=== PATIENT | female | born 2005 | race Two or more races ===

== ENCOUNTER 2025-05-18 11:00 | Inpatient (IN) | payer MEDICAID, OTHER ==
[~2025-05-18] VITALS: Ht 157.5 cm; Wt 51.0 kg
--- NOTE | 2025-05-18 11:08 | ED.PDOC ---
HPI (NEURO) HPI Comments One day headache, near-syncope, fever, generalized weakness, sick contacts with similar symptoms at home. HPI: Poor Historian. Past Medical History: Past Surgical History: HPI: 19 y F who presents to the ED via EMS for chief complaint of headache -EMS states pt has noted history of cerebral palsy and pt called EMS 10 minutes after having headache with noted near syncopal episode - pt states she was in restroom and states she started to have headache and states she felt she was going to pass out and called family who helped her to her bed - pt felt weak while sitting down in bed with noted headache and dizziness and EMS was called - EMS arrived on scene and noted pt was alert and oriented and checked vitals with noted temp of 104.2 F and family noting sick contacts - pt was brought to the ED, and had temp checked with noted temp of 100.5 F in the ED, with noted heart rate of 123 with otherwise stable stable vitals - pt otherwise denies current - pt denies any other symptoms in the ED Past Medical History: cerebral palsy, Past Surgical History: L hip and eye surgery Social History: Denies ETOH, smoking, and drug use. Medications: unknown Allergies: nkda REVIEW OF SYSTEMS: CONSTITUTIONAL: Denies acute: diaphoresis, chills, HEAD: Denies acute: photophobia Eyes: Denies acute: Double vision, vision loss, eye pain, eye discharge. EARS: Denies acute: tinnitus, hearing loss, ear discharge, ear pain, THROAT: Denies acute: sore throat, swelling, difficulty swallowing , pain with swallowing, change in voice. NECK: Denies acute: neck pain, neck swelling, stiff neck. HEART: Denies acute : chest pain, palpitations, LUNGS: Denies acute: SOB, wheezing, cough, hemoptysis ABDOMEN: Denies acute: abdominal pain, Nausea, Vomiting, diarrhea, melena , hematemesis, hematochezia SKIN: Denies acute: rash, redness, lesions, itchiness. EXTREMITIES: Denies acute: calf pain, numbness, tingling, weakness, denies pain in extremity. Denies acute: Low back pain. Neuro: Denies acute: focal neurological deficit, motor or sensory focal neurological deficit, tremors, seizure like activity, confusion, change in mental status, loss of bowel or bladder function, cauda equina like symptoms. : Denies acute: dysuria, hematuria, flank pain, increase in urinary frequency. PSYCH: Denies acute: hallucination, suicidal ideation, homicidal ideation. FEMALE: Denies acute: abnormal vaginal bleeding, foul odor, unusual discharge. PHYSICAL EXAM: General: ----[id number]----acute distress, awake and alert. Head: normocephalic, atraumatic. Neck: supple, trachea is midline, no swelling. Throat: Normal phonation. Dry oral mucosa Eyes:, no erythema, no purulent discharge, no proptosis, no icterus. Heart: regular tachycardia in the setting of fever, no significant murmur appreciated. Lungs: no apparent respiratory distress, Able to speak in full sentences. No wheezing, no rhonchi, no crackles. No stridors Clear to auscultation bilaterally. Abdomen: non tender to palpation, non distended, soft, no guarding, no rebound, + bowel sounds. Neuro: Awake, Alert, oriented to name, self, situation, follows commands GCS=15. Speech is normal. Skin: no petechia, no purpura, no cyanosis, non-pale, not jaundice. Lower extremities: --no - Pitting edema no acute deformity, no focal swelling, no calf TTP. Noted joint deformity with a history of cerebral palsy Makes eye contact. moves all four extremities. Face: no apparent facial droop. PERRLA, EOM-I CN 2-12 are grossly intact, No nystagmus. No nuchal rigidity, Kernig's sign, Brudzinski's sign, no meningeal signs. ED COURSE: DISCLAIMER: This medical document was created using an electronic medical record system with voice recognition software and computerized dictation system. Although this document has been carefully reviewed, there might still be some phonetic and typographical errors. Occasional wrong-word or "sound-alike" substitutions may have occurred due to the inherent limitations of voice recognition software. These areas are purely typographical due to imperfections of the software programs and do not reflect any compromise in the patient's medical care. Please read the chart carefully and recognize, using context, where these substitutions have occurred. Chief Complaint: near syncope Time Seen by MD: 11:08 Reviewed Notes: Allergies Information Source: Patient, Emergency Med Personnel Mode of Arrival: EMS Was a procedure done? Was a procedure done?: No Differential Diagnosis (SZ) Seizure: N/A General Weakness: Other (Includes but not limited to thyroid disease, encephalopathy, electrolyte abnormality, sepsis, infection, intracranial pathology, drug adverse effects, arrhythmia, kidney insufficiency, ACS, CVA, malignancy, anemia, viral etiology,) X-Ray, Labs, Meds, VS Vital Signs Date Time Temp Pulse Resp B/P (MAP) Pulse Ox O2 Delivery O2 Flow Rate FiO2 05/18/25 18:00 98.0 93 20 96/62 (73) 100 98.0 05/18/25 17:00 108 20 100/56 (71) 100 05/18/25 16:00 100.8 05/18/25 16:00 100.8 110 15 94/57 (69) 100 100.8 05/18/25 14:46 102.4 05/18/25 14:46 102.4 121 15 99/58 (72) 100 102.4 05/18/25 11:30 123 15 100 Room Air* 0 21 05/18/25 11:30 102.7 123 15 107/69 (82) 100 102.7 05/18/25 11:11 100.5 123 16 103/67 99 100.5 Lab Test 05/18/25 17:42 05/18/25 14:56 05/18/25 13:00 05/18/25 12:57 Range/Units Urine Color Light-yellow Yellow Urine Clarity Clear Clear Urine pH 7.5 5.0-9.0 Urine Specific [place] 1.013 1.001-1.035 Urine Protein Negative Negative Urine Ketones 1+ H Negative Urine Blood Negative Negative /uL Urine Nitrite Negative Negative Urine Bilirubin Negative Negative Urine Urobilinogen Normal Negative mg/dL Urine Leukocyte Esterase Negative Negative /uL Urine RBC None seen 0 - 4 /hpf Urine Microscopic WBC 1 0-5 /HPF Urine Squamous Epithelial Cells Few <5 /hpf Urine Bacteria None seen None Seen /hpf Urine Glucose Normal Normal mg/dL Lactic Acid Level 3.2 *H 0.4-2.0 mmol/L Troponin I High Sensitivity < 3 L < 3 L </=34 ng/L Influenza Type A Antigen Negative Negative Influenza Type B Antigen Negative Negative SARS-CoV-2 Antigen (Rapid) Negative NEGATIVE Test 05/18/25 11:40 Range/Units White Blood Count 8.6 4.4-10.8 10^3/uL Red Blood Count 5.34 H 4.0-5.20 10^6/uL Hemoglobin 12.3 12.2-16.2 g/dL Hematocrit 37.7 36.0-46.0 % Mean Corpuscular Volume 70.5 L 80.0-100.0 fL Mean Corpuscular Hemoglobin 23.0 L 28.0-32.0 pg Mean Corpuscular Hemoglobin Concent 32.7 32.0-36.0 g/dL Red Cell Distribution Width 17.7 H 11.8-14.3 % Platelet Count 229 140-450 10^3/uL Mean Platelet Volume 9.2 6.9-10.8 fL Neutrophils (%) (Auto) 93.2 H 37.0-80.0 % Lymphocytes (%) (Auto) 2.2 L 10.0-50.0 % Monocytes (%) (Auto) 4.3 0.0-12.0 % Eosinophils (%) (Auto) 0.1 0.0-7.0 % Basophils (%) (Auto) 0.2 0.0-2.0 % Neutrophils # (Auto) 8.0 1.6-8.6 10 ^3/uL Lymphocytes # (Auto) 0.2 L 0.4-5.4 10 ^3/uL Monocytes # (Auto) 0.4 0-1.3 10 ^3/uL Eosinophils # (Auto) 0 0-0.8 10 ^3/uL Basophils # (Auto) 0 0-0.2 10 ^3/uL Nucleated Red Blood Cells 0.0 % Prothrombin Time 10.9 9.3-11.8 sec Prothrombin Time INR 1.03 0.9-1.15 Activated Partial Thromboplast Time 23.9 L 24.5-34.5 SEC Sodium Level 141 136-145 mmol/L Potassium Level 3.4 L 3.5-5.1 mmol/L Chloride Level 112 H 98-107 mmol/L Carbon Dioxide Level 16 L 20-31 mmol/L Anion Gap 13 5-15 Blood Urea Nitrogen 5 L 9-23 mg/dL Creatinine 0.80 0.550-1.02 mg/dL Glomerular Filtration Rate Calc 107 >90 mL/min BUN/Creatinine Ratio 6.3 L 10.0-20.0 Serum Glucose 104 74-106 mg/dL Lactic Acid Level 2.2 *H 0.4-2.0 mmol/L Calcium Level 9.6 8.7-10.4 mg/dL Magnesium Level 2.2 1.6-2.6 mg/dL Total Bilirubin 0.4 0.2-1.0 mg/dL Aspartate Amino Transferase (AST) 12 L 13-40 U/L Alanine Aminotransferase (ALT) 15 7-40 U/L Alkaline Phosphatase 85 46-116 U/L Troponin I High Sensitivity < 3 L </=34 ng/L Total Protein 8.3 H 5.7-8.2 g/dL Albumin 5.1 H 3.2-4.8 g/dL Microbiology Date/Time Source Procedure Growth Status 05/18/25 17:44 Voided Urine Urine Culture - Preliminary Resulted 05/18/25 11:40 Blood Blood Culture - Preliminary NO GROWTH AFTER 48 HOURS OF INCUBATION. Resulted 05/18/25 11:25 Blood Blood Culture - Preliminary NO GROWTH AFTER 48 HOURS OF INCUBATION. Resulted [facility] [id number] [place] [address] Ph: [phone] DIAGNOSTIC IMAGING Diagnostic Imaging Report : [id number] Signed PATIENT: CHARI ACUNA ACCT: [id number] UNIT: [id number] : 2005 LOC: ER ROOM / BED: / AGE / SEX: 19 / F ADM STATUS: REG ER SERVICE [id number] ORDERING PHYSICIAN: KATTY LEONARD DO PROCEDURE(s): HWOCT - HEAD WITHOUT CONTRAST REASON: ORDER NUMBER(s): [id number], ACCESSION NUMBER(s): [id number] EXAM: CT HEAD WITHOUT CONTRAST HISTORY: MELO COMPARISON: None TECHNIQUE: Noncontrast axial CT images of the head were performed. Sagittal and coronal reformatted images were obtained. This CT exam was performed using 1 or more of the following dose reduction techniques: Automated exposure control, adjustment of the mA and/or kv according to patient size, or the use of iterative reconstruction techniques. Radiation Dose: CTDI volume is 51.03 mGy. Dose-length product is 116.48 mGy*cm FINDINGS: Patient motion limits evaluation. There is question bilateral frontal lobe cerebral edema versus artifactual appearance due to patient motion artifact. No intracranial hemorrhage, mass, midline shift, hydrocephalus, or evidence of acute large vessel infarct. The partially-visualized paranasal sinuses are clear. The bilateral mastoid air cells and middle ear spaces are clear. There is cerumen impaction in the bilateral external auditory canals. There is adenoid tonsillar hypertrophy. No cranial fracture or scalp edema. IMPRESSION: Question of bilateral frontal lobe cerebral edema versus artifactual appearance due to patient motion. Recommend repeat CT imaging of the head to eliminate this patient motion artifact. ATED BY: LILLIANA NUÑEZ MD DICTATED DATE/TIME: 05/18/251332 SIGNED BY: LILLIANA NUÑEZ MD SIGNED DATE/TIME: 05/18/251332 CC: [place] [address] Ph: [phone] DIAGNOSTIC IMAGING Diagnostic Imaging Report : [id number] Signed PATIENT: CHARI ACUNA ACCT: [id number] UNIT: [id number] : 2005 LOC: ER ROOM / BED: / AGE / SEX: 19 / F ADM STATUS: REG ER SERVICE 1108 ORDERING PHYSICIAN: KATTY LEONARD DO PROCEDURE(s): CXRP - CHEST PORTABLE REASON: fever, MELO, NEAR SYNCOPE ORDER NUMBER(s): [id number], ACCESSION NUMBER(s): [id number] CHEST RADIOGRAPH Indication: fever, MELO, NEAR SYNCOPE Technique: Single frontal view of the chest was obtained COMPARISON: None FINDINGS: Lines and Tubes: None Lungs: Clear Pleura: No effusion. No pneumothorax. Cardiomediastinal contours: Unremarkable Bones: Unremarkable IMPRESSION: No acute disease. ATED BY: TIM FOWLER MD DICTATED DATE/TIME: 05/18/25 1152 SIGNED BY: TIM FOWLER MD SIGNED DATE/TIME: 05/18/25 115 CC: [place] [address] Ph: [phone] DIAGNOSTIC IMAGING Diagnostic Imaging Report : [id number] Signed PATIENT: CHARI ACUNA ACCT: [id number] UNIT: [id number] : 2005 LOC: ER ROOM / BED: / AGE / SEX: 19 / F ADM STATUS: REG ER SERVICE 1409 ORDERING PHYSICIAN: KATTY LEONARD DO PROCEDURE(s): HWOCT - HEAD WITHOUT CONTRAST REASON: abn CT findings ORDER NUMBER(s): [id number], ACCESSION NUMBER(s): [id number] CLINICAL INFORMATION: Abnormal CT findings. CT from earlier the same day was obtained for headache. TECHNIQUE: Axial imaging was obtained through the brain without contrast. Coronal and sagittal reformatted images were obtained, reviewed, and stored. Images were reviewed in brain and bone windows. All CT scans at this medical facility are performed using dose modulation techniques as appropriate to a performed exam including the following: Automated exposure control was utilized; adjustment of the MA and/or KV according to patient size; and use of iterative reconstruction technique. CTDIvol = 33.35 mGy DLP = 587.16 mGy-cm COMPARISON: CT HEAD WITHOUT CONTRAST on DOS: 05/18/25 FINDINGS: No acute intracranial hemorrhage. Improved artifact compared to the prior CT. There remains mild artifact in the anterior inferior right frontal lobe. No definite evidence for cerebral edema. There appears to be normal hoover- white differentiation other than the area of artifact. The ventricles and sulci are within normal limits in size for age. Basal cisterns are patent. The calvarium is unremarkable. Paranasal sinuses and mastoid air cells are clear. IMPRESSION: 1. Improved artifact compared to the recent CT exam. No definite cerebral edema. 2. No evidence of acute intracranial hemorrhage. Otherwise, no evidence of acute intracranial abnormality. Correlate with clinical findings. If clinical symptoms persist or worsen, MRI could be considered. ATED BY: SIN REID DO DICTATED DATE/TIME: 05/18/251444 SIGNED BY: SIN REID DO SIGNED DATE/TIME: 05/18/251444 CC: Time of 1ST Reevaluation: 00:00 Reevaluation 1ST: Patient Education/Counseling: Other Family Education/Counseling: No Family Present Comments MDM: patient presented with the above HPI.--fever----workup was initiated. patient was found with the above mentioned diagnosis. the following medications were ordered: please refer to order lists of meds and tests obtained by myself Dr. Leonard. Patient ED course and VS have been stabilized. Patient has been reassessed in the ED and remained in a stable condition. Pertinent incidental findings were discussed with the patient and/or family. Patient/family voices understanding and is agreeable with plan. Patient has been observed in the ED adequate length of time to insure improvement/stability. Escalation of care considered: Consideration of escalation to observation or admission Patient was given Tylenol. Sepsis protocol initiated. Fluids and antibiotics given. Patient was ADMITTED to the medicine team for further evaluation and treatment o f their presentation. All the reports of any imaging studies that were ordered by myself were reviewed by myself. Departure 1 Departure Time of Disposition: 12:13 Impression: Primary Impression: Fever of unknown origin Disposition: ADMITTED INPATIENT Admit to: Tele Condition: Guarded e-Prescriptions Amoxicillin & Pot Clavulanate (AUGMENTIN TABLET) 875 Mg Tb 875 MG PO BID for 5 Days, #10 TAB 0 Refills Prov: BRANDON ALARCON MD 05/20/25 Discharged With: Self Critical Care Note Critical Care Time?: Yes (45 min-critical care time only) I personally scribed for KATTY LEONARD DO ([email or web address]) on 05/18/25 at 11:08. Electronically submitted by Angel Esteban ([email or web address]). I personally scribed for KATTY LEONARD DO ([email or web address]) on 05/18/25 at 11:58. Electronically submitted by Angel Esteban ([email or web address]). I personally scribed for KATTY LEONARD DO ([email or web address]) on 05/18/25 at 13:49. Electronically submitted by Angel TOLEDO). KATTY LEONARD DO May 18, 2025 11:08
[2025-05-18 11:30] VITALS: PULSE 123; RESP 15; O2SAT 100
--- NOTE | 2025-05-18 11:54 | DVH ---
CHEST RADIOGRAPH Indication: fever, MELO, NEAR SYNCOPE Technique: Single frontal view of the chest was obtained COMPARISON: None FINDINGS: Lines and Tubes: None Lungs: Clear Pleura: No effusion. No pneumothorax. Cardiomediastinal contours: Unremarkable Bones: Unremarkable IMPRESSION: No acute disease.
[2025-05-18] MEDS: LACTATED RINGER'S 1,500 ML IV ONE (12:00)
[2025-05-18] MEDS: CEFEPIME 1GM/ 50ML 50 ML IV ONE (12:05)
[2025-05-18 12:11] LABS: Hematocrit 37.7 % (36.0-46.0); Hemoglobin 12.3 g/dL (12.2-16.2); Mean Corpuscular Hemoglobin 23.0 pg (28.0-32.0); Mean Corpuscular Volume 70.5 fL (80.0-100.0); Nucleated Red Blood Cells % 0.0 %
[2025-05-18 12:19] LABS: Alanine Aminotransferase 15 U/L (7-40); Alkaline Phosphatase 85 U/L (46-116); Anion Gap 13 (5-15); BUN/Creatinine Ratio 6.3 (10.0-20.0); Calcium 9.6 mg/dL (8.7-10.4); Glucose 104 mg/dL (74-106); Magnesium 2.2 mg/dL (1.6-2.6); Sodium 141 mmol/L (136-145)
[2025-05-18 12:20] LABS: Bilirubin, Total 0.4 mg/dL (0.2-1.0)
[2025-05-18 12:22] LABS: Albumin 5.1 g/dL (3.2-4.8); Blood Urea Nitrogen 5 mg/dL (9-23); Carbon Dioxide 16 mmol/L (20-31); Chloride 112 mmol/L (98-107); Potassium 3.4 mmol/L (3.5-5.1); Total Protein 8.3 g/dL (5.7-8.2)
[2025-05-18 12:27] LABS: INR 1.03 (0.9-1.15); Partial Thromboplastin Time 23.9 SEC (24.5-34.5); Prothrombin Time 10.9 sec (9.3-11.8)
[2025-05-18 12:29] LABS: Lactic Acid w/Reflex 2.2 mmol/L (0.4-2.0)
[2025-05-18 13:31] LABS: COVID19 ANTIGEN SOFIA FIA NEGATIVE (NEGATIVE)
--- NOTE | 2025-05-18 13:35 | DVH ---
EXAM: CT HEAD WITHOUT CONTRAST HISTORY: MELO COMPARISON: None TECHNIQUE: Noncontrast axial CT images of the head were performed. Sagittal and coronal reformatted i mages were obtained. This CT exam was performed using 1 or more of the following dose reduction techn iques: Automated exposure control, adjustment of the mA and/or kv according to patient size, or the u se of iterative reconstruction techniques. Radiation Dose: CTDI volume is 51.03 mGy. Dose-length product is 116.48 mGy*cm FINDINGS: Patient motion limits evaluation. There is question bilateral frontal lobe cerebral edema versus art ifactual appearance due to patient motion artifact. No intracranial hemorrhage, mass, midline shift, hydrocephalus, or evidence of acute large vessel infarct. The partially-visualized paranasal sinuses are clear. The bilateral mastoid air cells and middle ear spaces are clear. There is cerumen impactio n in the bilateral external auditory canals. There is adenoid tonsillar hypertrophy. No cranial fract ure or scalp edema. IMPRESSION: Question of bilateral frontal lobe cerebral edema versus artifactual appearance due to patient motion . Recommend repeat CT imaging of the head to eliminate this patient motion artifact.
[2025-05-18] MEDS: ACETAMINOPHEN 325 MG TAB PO ONE (14:46)
--- NOTE | 2025-05-18 14:48 | DVH ---
CLINICAL INFORMATION: Abnormal CT findings. CT from earlier the same day was obtained for headache. TECHNIQUE: Axial imaging was obtained through the brain without contrast. Coronal and sagittal reform atted images were obtained, reviewed, and stored. Images were reviewed in brain and bone windows. Al l CT scans at this medical facility are performed using dose modulation techniques as appropriate to a performed exam including the following: Automated exposure control was utilized; adjustment of the MA and/or KV according to patient size; and use of iterative reconstruction technique. CTDIvol = 33.3 5 mGy DLP = 587.16 mGy-cm COMPARISON: CT HEAD WITHOUT CONTRAST on DOS: 05/18/25 FINDINGS: No acute intracranial hemorrhage. Improved artifact compared to the prior CT. There remai ns mild artifact in the anterior inferior right frontal lobe. No definite evidence for cerebral edema . There appears to be normal hoover-white differentiation other than the area of artifact. The ventricl es and sulci are within normal limits in size for age. Basal cisterns are patent. The calvarium is u nremarkable. Paranasal sinuses and mastoid air cells are clear. IMPRESSION: 1. Improved artifact compared to the recent CT exam. No definite cerebral edema. 2. No evidence of acute intracranial hemorrhage. Otherwise, no evidence of acute intracranial abnorma lity. Correlate with clinical findings. If clinical symptoms persist or worsen, MRI could be conside red.
[2025-05-18] MEDS: SODIUM CHLORIDE 0.9% 1,000 ML IV ONE (16:00)
[2025-05-18 18:06] LABS: Urine Protein, UAD Negative (Negative)
[2025-05-18] MEDS ORDERED: ONDANSETRON HCL 4 MG/2 ML VIAL IV PRN (18:30)
[2025-05-18] MEDS ORDERED: ACETAMINOPHEN 325 MG TAB PO PRN (18:30)
[2025-05-18] MEDS ORDERED: HYDROcodone-ACET 5/325MG TAB PO PRN (18:30)
--- NOTE | 2025-05-18 18:34 | DVHHP2 ---
Review of Systems Allergies: Coded Allergies: NO KNOWN ALLERGIES (Unverified , 05/18/25) Medications Current Medications Medications Dose Ordered Sig/Dru Route Start Time Stop Time Status Last Admin Dose Admin Cefepime HCl 50 ml @ 12.5 mls/hr Q8HR IV 05/18/25 22:00 Exam Vital Signs Vital Signs Date Time Temp Pulse Resp B/P (MAP) Pulse Ox O2 Delivery O2 Flow Rate FiO2 05/18/25 16:00 100.8 05/18/25 16:00 110 15 94/57 (69) 100 05/18/25 11:30 Room Air* 0 21 Labs/Xrays Labs Test 05/18/25 17:42 05/18/25 14:56 05/18/25 13:00 05/18/25 11:40 Range/Units Urine Color Light-yellow Yellow Urine Clarity Clear Clear Urine pH 7.5 5.0-9.0 Urine Specific [place] 1.013 1.001-1.035 Urine Protein Negative Negative Urine Ketones 1+ H Negative Urine Blood Negative Negative /uL Urine Nitrite Negative Negative Urine Bilirubin Negative Negative Urine Urobilinogen Normal Negative mg/dL Urine Leukocyte Esterase Negative Negative /uL Urine RBC None seen 0 - 4 /hpf Urine Microscopic WBC 1 0-5 /HPF Urine Squamous Epithelial Cells Few <5 /hpf Urine Bacteria None seen None Seen /hpf Urine Glucose Normal Normal mg/dL Lactic Acid Level 3.2 *H 0.4-2.0 mmol/L Troponin I High Sensitivity < 3 L </=34 ng/L Influenza Type A Antigen Negative Negative Influenza Type B Antigen Negative Negative SARS-CoV-2 Antigen (Rapid) Negative NEGATIVE White Blood Count 8.6 4.4-10.8 10^3/uL Red Blood Count 5.34 H 4.0-5.20 10^6/uL Hemoglobin 12.3 12.2-16.2 g/dL Hematocrit 37.7 36.0-46.0 % Mean Corpuscular Volume 70.5 L 80.0-100.0 fL Mean Corpuscular Hemoglobin 23.0 L 28.0-32.0 pg Mean Corpuscular Hemoglobin Concent 32.7 32.0-36.0 g/dL Red Cell Distribution Width 17.7 H 11.8-14.3 % Platelet Count 229 140-450 10^3/uL Mean Platelet Volume 9.2 6.9-10.8 fL Neutrophils (%) (Auto) 93.2 H 37.0-80.0 % Lymphocytes (%) (Auto) 2.2 L 10.0-50.0 % Monocytes (%) (Auto) 4.3 0.0-12.0 % Eosinophils (%) (Auto) 0.1 0.0-7.0 % Basophils (%) (Auto) 0.2 0.0-2.0 % Neutrophils # (Auto) 8.0 1.6-8.6 10 ^3/uL Lymphocytes # (Auto) 0.2 L 0.4-5.4 10 ^3/uL Monocytes # (Auto) 0.4 0-1.3 10 ^3/uL Eosinophils # (Auto) 0 0-0.8 10 ^3/uL Basophils # (Auto) 0 0-0.2 10 ^3/uL Nucleated Red Blood Cells 0.0 % Prothrombin Time 10.9 9.3-11.8 sec Prothrombin Time INR 1.03 0.9-1.15 Activated Partial Thromboplast Time 23.9 L 24.5-34.5 SEC Sodium Level 141 136-145 mmol/L Potassium Level 3.4 L 3.5-5.1 mmol/L Chloride Level 112 H 98-107 mmol/L Carbon Dioxide Level 16 L 20-31 mmol/L Anion Gap 13 5-15 Blood Urea Nitrogen 5 L 9-23 mg/dL Creatinine 0.80 0.550-1.02 mg/dL Glomerular Filtration Rate Calc 107 >90 mL/min BUN/Creatinine Ratio 6.3 L 10.0-20.0 Serum Glucose 104 74-106 mg/dL Calcium Level 9.6 8.7-10.4 mg/dL Magnesium Level 2.2 1.6-2.6 mg/dL Total Bilirubin 0.4 0.2-1.0 mg/dL Aspartate Amino Transferase (AST) 12 L 13-40 U/L Alanine Aminotransferase (ALT) 15 7-40 U/L Alkaline Phosphatase 85 46-116 U/L Total Protein 8.3 H 5.7-8.2 g/dL Albumin 5.1 H 3.2-4.8 g/dL SEPSIS Sepsis Screen Date sepsis recognized/suspect: May 18, 2025 Time Sepsis recognized/suspect: 113 Recent Procedure: No On Antibiotic Therapy: No Respiratory Rate >20: No Heart Rate >90: Yes Temp<36 C (96.8 F) or >38.3 C: Yes SBP <90 or MAP <65 mmHG: No New Acute Mental Status Change: No Is the patient on CPAP, BIPAP,: No Physician Orders Elevator Operator Service (05/18/25 ) Chest Portable (05/18/25 11:08) Electrocardigram (05/18/25 11:08) Accucheck (05/18/25 11:08) Blood Culture (05/18/25 11:08) Cefepime 1gm/ 50ml (Maxipime 1gm/50ml) (05/18/25 22:00) Notify Md If Map <65 Or Bp<90 (05/18/25 11:08) If Map<65 Start Vasopressor (05/18/25 11:08) Sepsis Reassesment After Fluid (05/18/25 12:08) Head Without Contrast (05/18/25 12:13) Head Without Contrast (05/18/25 14:09) Vital Signs Date Time Temp Pulse Resp B/P (MAP) Pulse Ox O2 Delivery O2 Flow Rate FiO2 05/18/25 16:00 100.8 05/18/25 16:00 100.8 110 15 94/57 (69) 100 100.8 05/18/25 14:46 102.4 05/18/25 14:46 102.4 121 15 99/58 (72) 100 102.4 05/18/25 11:30 123 15 100 Room Air* 0 21 05/18/25 11:30 102.7 123 15 107/69 (82) 100 102.7 05/18/25 11:11 100.5 123 16 103/67 99 100.5 Laboratory Tests Test 05/18/25 11:40 05/18/25 14:56 Lactic Acid Level 2.2 mmol/L (0.4-2.0) *H 3.2 mmol/L (0.4-2.0) *H White Blood Count 8.6 10^3/uL (4.4-10.8) Medications Medications Dose Ordered Sig/Dru Route Start Time Stop Time Status Last Admin Dose Admin Acetaminophen 650 mg ONCE ONCE PO 05/18/25 14:15 05/18/25 14:16 DC 05/18/25 14:46 650 MG Cefepime HCl 50 ml @ 50 mls/hr ONCE ONCE IV 05/18/25 11:30 05/18/25 12:29 DC 05/18/25 12:05 50 MLS/HR Lactated Ringer's 1,500 ml @ 1,500 mls/hr ONCE ONCE IV 05/18/25 11:30 05/18/25 12:29 DC 05/18/25 12:00 1,500 MLS/HR Sodium Chloride 1,000 ml @ 1,000 mls/hr Q1H ONCE IV 05/18/25 16:00 05/18/25 17:07 DC 05/18/25 16:00 1,000 MLS/HR Assessment/Plan Assessment/Plan Assessment Fever of unknown etiology Leukocytosis Sirs Cerebral palsy Plan Admit the patient to [facility] to the hospitalist Cefepime Blood cultures pending Maintenance IV fluids Continue treatment per orders. Plan discussed with: Patient, Other Date of Service: May 18, 2025 Billing Provider: CHARITO MANZO Common Visit Codes: [id number] INP/OBS CARE (MOD) CHARITO MANZO May 18, 2025 18:34
[2025-05-18 20:20] VITALS: BP 106/58; PULSE 82; RESP 16; TEMP 97.3; O2SAT 98
[2025-05-18] MEDS: TOPIRAMATE 25 MG TAB PO SCH (22:00)
[2025-05-18] MEDS: levETIRAcetam 500 MG TAB PO SCH (22:00)
[2025-05-18] MEDS: CEFEPIME 1GM/ 50ML 50 ML IV SCH (22:43)
[2025-05-19 01:00] VITALS: BP 94/59; PULSE 99; RESP 18; TEMP 99.4; O2SAT 99
[2025-05-19 05:00] VITALS: BP 100/52; PULSE 96; RESP 18; TEMP 98.5; O2SAT 99
[2025-05-19 05:33] LABS: Nucleated Red Blood Cells % 0.0 %
[2025-05-19 05:36] LABS: Hematocrit 33.4 % (36.0-46.0); Hemoglobin 11.0 g/dL (12.2-16.2); Mean Corpuscular Hemoglobin 23.3 pg (28.0-32.0); Mean Corpuscular Volume 70.8 fL (80.0-100.0)
[2025-05-19 06:06] LABS: Anion Gap 11 (5-15); Potassium 3.6 mmol/L (3.5-5.1); Sodium 142 mmol/L (136-145)
[2025-05-19 06:12] LABS: Glucose 88 mg/dL (74-106)
[2025-05-19 06:27] LABS: Carbon Dioxide 17 mmol/L (20-31); Chloride 114 mmol/L (98-107)
[2025-05-19 06:28] LABS: BUN/Creatinine Ratio 8.5 (10.0-20.0); Blood Urea Nitrogen < 5 mg/dL (9-23); Calcium 8.4 mg/dL (8.7-10.4)
[2025-05-19] MEDS: SODIUM CHLORIDE 0.9% 1,000 ML IV ONE ×2 (07:51→10:15)
[2025-05-19 09:00] VITALS: BP 103/67; PULSE 85; RESP 18; TEMP 98.1; O2SAT 99
[2025-05-19] MEDS: SODIUM CHLORIDE 0.9% 1,000 ML IV SCH (09:15)
[2025-05-19 13:00] VITALS: BP 101/66; PULSE 83; RESP 17; TEMP 99.9; O2SAT 98
--- NOTE | 2025-05-19 16:24 | DVHPNRES ---
Progress Note Date Seen: May 19, 2025 Resident Creating Document: PAULETTE LASSITER RESIDENT Medical Necessity Reason Pt with a Central, PICC or Fol: No Subjective Review of Systems Patient is 19 years old female with a past medical history of cerebral palsy, seizure was brought in the ER due to fever for 1 day, patient in his mouth also endorsed lightheadedness and dizziness associated with fever. Patient and family reported patient had a sick contact, her sister was sick for 1 day. Patient denied any chest pain no shortness of breaths. Initial lab workup revealed potassium 3.4, lactic acid 2.2-3.2. COVID and flu negative. CT head negative for acute intracranial pathology. PMH-cerebral palsy, seizure PSH- eye surgery, tendon lengthening surgery Allergy- NKDA Patient was seen today at the bedside. Cardiovascular- deny acute chest pain or shortness of breath or cough or palpitation Respiratory denies cough or short of breath or wheezing Gastrointestinal- denies any rectal bleeding, nausea or vomiting Musculoskeletal-denies acute joint swelling or tenderness or redness Neurological- denies acute dysarthria, dysphagia, change in vision Psychiatry- denies depression or SI or HI Skin- denies acute rash or purpura Patient is seen today at bedside, less than chart reviewed. Patient has a fever of 102 F today. No neck rigidity, no sign of altered mental status. We will discontinue cefepime and ordered Unasyn. Objective vital signs Vital Sign Date Time Temp Pulse Resp B/P (MAP) Pulse Ox O2 Delivery O2 Flow Rate FiO2 05/19/25 13:00 99.9 83 17 101/66 (78) 98 99.9 05/18/25 11:30 Room Air* 0 21 Total Intake and Output 05/18/25 05/18/25 05/19/25 15:00 23:00 07:00 Intake Total 1550 ml 1000 ml Balance 1550 ml 1000 ml medications Current Medications Medications Dose Ordered Sig/Dru Route Start Time Stop Time Status Last Admin Dose Admin Cefepime HCl 50 ml @ 12.5 mls/hr Q8HR IV 05/18/25 22:00 05/19/25 13:30 12.5 MLS/HR Topiramate 25 mg BID PO 05/18/25 22:00 05/19/25 09:27 25 MG Levetiracetam 500 mg BID PO 05/18/25 22:00 05/19/25 09:27 500 MG Acetaminophen/ Hydrocodone Bitart 1 tab Q4HP PRN PO 05/18/25 18:30 Ondansetron HCl 4 mg Q4HP PRN IV 05/18/25 18:30 Acetaminophen 650 mg Q6HP PRN PO 05/18/25 18:30 Patient Own Medication 300 mg HS PO 05/19/25 22:00 Sodium Chloride 1,000 ml @ 100 mls/hr Q10H IV 05/19/25 09:15 Examination General examination- awake, alert, oriented HEENT- PEERLA, no acute nasal discharge Cardiovascular- S1-S2 audible, rate and rhythm regular, no murmur Respiratory- CTAB, no wheeze or rhonchi Gastrointestinal-nontender, bowel sound+. Nondistended Musculoskeletal-no acute joint swelling or tenderness or redness Lower extremity- bilateral lower extremity contracture, Neurological- cranial nerves intact, no acute dysarthria or dysphagia Psychiatry- denies depression or SI or HI Skin- no acute rash or purpura laboratory and microbiology Laboratory Tests 05/19/25 04:51 Test 05/19/25 04:51 Range/Units Serum Glucose 88 74-106 mg/dL Microbiology Date/Time Source Procedure Growth Status 05/18/25 11:40 Blood Blood Culture - Preliminary NO GROWTH AFTER 24 HOURS OF INCUBATION. Resulted Problem List/Assessment/Plan Problem List/Assessment/Plan Assessment and plan #SIRS #Bacterial sinusitis # fever under evaluation -continue Unasyn as prescribed -Tylenol PRN # history of cerebral palsy # seizure disorder -resumed home medication levetiracetam and topiramate, zonisamide # lactic acidosis likely due to dehydration/SIRS -status post IV normal saline -monitor CBC, BMP Goals of care, Code status ; discussed with >15 minutes PUD prophylaxis: Pantoprazole DVT prophylaxis: Lovenox Plan discussed with Dr. Sinha , nursing staff, Total time spent on patient evaluation, chart review, assessment and plan, discussion discussion >35 minutes Plan discussed with: Patient, Other (RN, mother) My Orders My Orders Orders - PAULETTE LASSITER RESIDENT Procedure Category Date Status Time Urine Bacterial AYLIN 05/19/25 In Process Culture 09:04 Sodium Chloride 0.9% PHA 05/19/25 In Process 09:15 Date of Service: May 19, 2025 Billing Provider: BRANDON ALARCON MD Common Visit Codes: [id number] INP/OBS CARE(HIGH) PAULETTE LASSITER RESIDENT May 19, 2025 16:24 ROSANA MCCALL RESIDENT May 19, 2025 19:18 BRANDON ALARCON MD May 21, 2025 22:24
[2025-05-19] MEDS ORDERED: ENOXAPARIN SOD 40 MG/0.4 ML SYRINGE SC ONE (16:45)
[2025-05-19 17:00] VITALS: BP 99/62; PULSE 85; RESP 18; TEMP 99.4; O2SAT 99
[2025-05-19] MEDS ORDERED: ENOXAPARIN SOD 30 MG/0.3 ML SYRINGE IV ONE (17:15)
[2025-05-19] MEDS: AMPICILLIN & SULBACTAM SODIUM 3 GM in SODIUM CHL 0.9% 100 ML IV SCH (17:16)
[2025-05-19] MEDS: ENOXAPARIN SOD 30 MG/0.3 ML SYRINGE SC ONE (17:36)
[2025-05-19 21:00] VITALS: BP 108/67; PULSE 77; RESP 17; TEMP 97.5; O2SAT 98
[2025-05-20] VITALS (8 sets, daily range): BP systolic 97–110; BP diastolic 59–68; PULSE 76–93; RESP 16–19; TEMP 97.8–100.3; O2SAT 96–100
[2025-05-20] MEDS: AMPICILLIN & SULBACTAM SODIUM 3 GM in SODIUM CHL 0.9% 100 ML IV SCH (02:13)
[2025-05-20 07:28] LABS: Hemoglobin 10.5 g/dL (12.2-16.2)
[2025-05-20 07:30] LABS: Hematocrit 32.4 % (36.0-46.0); Mean Corpuscular Hemoglobin 23.1 pg (28.0-32.0); Mean Corpuscular Volume 71.0 fL (80.0-100.0); Nucleated Red Blood Cells % 0.1 %
[2025-05-20 07:37] LABS: Potassium 3.7 mmol/L (3.5-5.1); Sodium 143 mmol/L (136-145)
[2025-05-20 07:38] LABS: Anion Gap 10 (5-15)
[2025-05-20 07:40] LABS: Calcium 8.3 mg/dL (8.7-10.4); Carbon Dioxide 19 mmol/L (20-31); Chloride 114 mmol/L (98-107)
[2025-05-20 07:43] LABS: Glucose 88 mg/dL (74-106)
[2025-05-20 07:44] LABS: BUN/Creatinine Ratio 8.6 (10.0-20.0); Blood Urea Nitrogen < 5 mg/dL (9-23)
[2025-05-20] MEDS ORDERED: AMPICILLIN & SULBACTAM SODIUM 3 GM in SODIUM CHL 0.9% 100 ML IV SCH (08:00)
[2025-05-20] MEDS: ENOXAPARIN SOD 30 MG/0.3 ML SYRINGE SC SCH (09:52)
[2025-05-20] MEDS ORDERED: ENOXAPARIN SOD 40 MG/0.4 ML SYRINGE SC SCH (10:00)
[2025-05-20] MEDS ORDERED: AUG875T PO (14:14)
--- NOTE | 2025-05-20 14:19 | DVHDS2 ---
Discharge Summary Date of Admission May 18, 2025 at 18:16 Date of Discharge: May 20, 2025 Labs/Diagnostic Data: Laboratory Results Test 05/20/25 06:23 05/19/25 04:51 05/18/25 17:42 05/18/25 14:56 White Blood Count 6.8 10^3/uL (4.4-10.8) Red Blood Count 4.56 10^6/uL (4.0-5.20) Hemoglobin 10.5 g/dL (12.2-16.2) Hematocrit 32.4 % (36.0-46.0) Mean Corpuscular Volume 71.0 fL (80.0-100.0) Mean Corpuscular Hemoglobin 23.1 pg (28.0-32.0) Mean Corpuscular Hemoglobin Concent 32.6 g/dL (32.0-36.0) Red Cell Distribution Width 18.0 % (11.8-14.3) Platelet Count 172 10^3/uL (140-450) Mean Platelet Volume 9.6 fL (6.9-10.8) Neutrophils (%) (Auto) 67.4 % (37.0-80.0) Lymphocytes (%) (Auto) 18.1 % (10.0-50.0) Monocytes (%) (Auto) 13.3 % (0.0-12.0) Eosinophils (%) (Auto) 0.5 % (0.0-7.0) Basophils (%) (Auto) 0.7 % (0.0-2.0) Neutrophils # (Auto) 4.6 10 ^3/uL (1.6-8.6) Lymphocytes # (Auto) 1.2 10 ^3/uL (0.4-5.4) Monocytes # (Auto) 0.9 10 ^3/uL (0-1.3) Eosinophils # (Auto) 0 10 ^3/uL (0-0.8) Basophils # (Auto) 0 10 ^3/uL (0-0.2) Nucleated Red Blood Cells 0.1 % Sodium Level 143 mmol/L (136-145) Potassium Level 3.7 mmol/L (3.5-5.1) Chloride Level 114 mmol/L (98-107) Carbon Dioxide Level 19 mmol/L (20-31) Anion Gap 10 (5-15) Blood Urea Nitrogen < 5 mg/dL (9-23) Creatinine 0.58 mg/dL (0.550-1.02) Glomerular Filtration Rate Calc 132 mL/min (>90) BUN/Creatinine Ratio 8.6 (10.0-20.0) Serum Glucose 88 mg/dL (74-106) Lactic Acid Level 0.7 mmol/L (0.4-2.0) Calcium Level 8.3 mg/dL (8.7-10.4) Vitamin B12 Level 329 pg/mL (211-911) Vitamin D 25-Hydroxy 12.9 ng/mL (30.0-100) Folic Acid 8.67 ng/mL (>5.38) Thyroid Stimulating Hormone (TSH) 0.41 uIU/mL (0.55-4.78) Urine Color Light-yellow (Yellow) Urine Clarity Clear (Clear) Urine pH 7.5 (5.0-9.0) Urine Specific [place] 1.013 (1.001-1.035) Urine Protein Negative (Negative) Urine Ketones 1+ (Negative) Urine Blood Negative /uL (Negative) Urine Nitrite Negative (Negative) Urine Bilirubin Negative (Negative) Urine Urobilinogen Normal mg/dL (Negative) Urine Leukocyte Esterase Negative /uL (Negative) Urine RBC None seen /hpf (0 - 4) Urine Microscopic WBC 1 /HPF (0-5) Urine Squamous Epithelial Cells Few /hpf (<5) Urine Bacteria None seen /hpf (None Seen) Urine Glucose Normal mg/dL (Normal) Troponin I High Sensitivity < 3 ng/L (</=34) Test 05/18/25 13:00 05/18/25 11:40 Influenza Type A Antigen Negative (Negative) Influenza Type B Antigen Negative (Negative) SARS-CoV-2 Antigen (Rapid) Negative (NEGATIVE) Prothrombin Time 10.9 sec (9.3-11.8) Prothrombin Time INR 1.03 (0.9-1.15) Activated Partial Thromboplast Time 23.9 SEC (24.5-34.5) Magnesium Level 2.2 mg/dL (1.6-2.6) Total Bilirubin 0.4 mg/dL (0.2-1.0) Aspartate Amino Transferase (AST) 12 U/L (13-40) Alanine Aminotransferase (ALT) 15 U/L (7-40) Alkaline Phosphatase 85 U/L (46-116) Total Protein 8.3 g/dL (5.7-8.2) Albumin 5.1 g/dL (3.2-4.8) Other Laboratory Tests 05/20/25 06:23 Brief Hx & Hospital Course: Patient is 19 years old female with a past medical history of cerebral palsy, seizure was brought in the ER due to fever for 1 day, patient in his mouth also endorsed lightheadedness and dizziness associated with fever. Patient and family reported patient had a sick contact, her sister was sick for 1 day. Patient denied any chest pain no shortness of breaths. Initial lab workup revealed potassium 3.4, lactic acid 2.2-3.2. COVID and flu negative. CT head negative for acute intracranial pathology. 05/20: Patient afebrile, vital signs stable. Uterus bilateral full of ear wax unable to visualize tympanic membrane, we will treat empirically. Patient vital signs stable stable for discharge as per plan below. diagnosis: sepsis due below Bacterial sinusitis fever under evaluation history of cerebral palsy seizure disorder neutrophilia, resolved tachycardia, resolved tachypnea, resolved lactic acidosis likely due to dehydration Intravascular volume depletion discharge plan: -Take Augmentin 875 mg twice daily for 5 days - hydrate well, warm fluids for 1 week -Dtef-diw-llpyefy cold and cough medications for conservative measures -Follow up PCP to review discharge - continue home meds not mentioned above Condition at Discharge: Fair Final Diagnosis/Problems List sepsis due below Bacterial sinusitis fever under evaluation history of cerebral palsy seizure disorder neutrophilia, resolved tachycardia, resolved tachypnea, resolved lactic acidosis likely due to dehydration Intravascular volume depletion Discharge Disposition: Home Discharge Instruct/Medications Diet: Regular Activity: No Restrictions, As Tolerated Follow Up/Referral: See below Medications: See below Scheduled Amoxicillin & Pot Clavulanate (Augmentin Tablet), 875 MG PO BID Discharge Statement: "Patient was advised to return to the ER or call 911 if any headaches, dizziness, shortness of breath, chest pain, abdominal pain, bleeding, fevers, or worsening of medical condition. Patient was counseled about treatment plan, medications, possible side effects, patientverbalized understanding. All questions were answered to the best of my ability. This discharge took greater then 30 minutes in planning, reviewing documentation, counseling the patient, and discussing with other team members." Date of Service: May 20, 2025 Billing Provider: BRANDON ALARCON MD Common Visit Codes: 19813-[id number]/OBS DISCH DAY >30min BRANDON ALARCON MD May 20, 2025 14:18
== END 2025-05-20 17:40 | disposition home or self-care (01) | DRG 720 ==
LOC: ER 11:00 → EDBD 11:00 → OVERFLOW 18:16 → WEST WING 05-19 23:55
PROVIDERS: ADMIT Student in an Organized Health Care Education/Training Program; ATTEND Emergency Medicine
DX: A41.9 Sepsis, unspecified organism (principal); E87.20 Acidosis, unspecified; D72.0 Genetic anomalies of leukocytes; G80.9 Cerebral palsy, unspecified; G40.909 Epilepsy, unspecified, not intractable, without status epilepticus; Z20.822 Contact with and (suspected) exposure to COVID-19; E86.0 Dehydration; J32.9 Chronic sinusitis, unspecified; B96.89 Other specified bacterial agents as the cause of diseases classified elsewhere
CPT/HCPCS: 36415; 70450; 71045; 80048; 80053; 81001; 82306; 82607; 82746; 83605; 83735; 84443; 84484; 85025; 85610; 85730; 87040; 87086; 87426; 87804; 96365; G0378